=== PATIENT | female | born 1970 | race Caucasian/White ===

== ENCOUNTER 2016-08-26 13:49 | Emergency (ER) | payer OTHER ==
[~2016-08-26] VITALS: Ht 162.6 cm; Wt 52.2 kg
[2016-08-26 14:16] LABS: ABSOLUTE BASOPHIL COUNT 0.1 /CUMM (0.0-0.2); ABSOLUTE EOSINOPHIL COUNT 0.6 /CUMM (0.0-0.7); ABSOLUTE LYMPH COUNT 3.1 /CUMM (1.2-3.4); ABSOLUTE MONOCYTE COUNT 0.6 /CUMM (0.10-0.60); BASOPHIL % 0.8 % (0.0-2.0); EOSINOPHIL % 6.5 % (0-5); GRANULOCYTE % 53.3 % (42.2-75.2); HEMATOCRIT 41.4 % (37-47); MEAN CORPUSCULAR HGB 33.9 PG (27.0-31.0); MEAN CORPUSCULAR HGB CONC 34.5 G/DL (33.0-37.0); MEAN CORPUSCULAR VOLUME 98.3 FL (81.0-99.0); MEAN PLATELET VOLUME 6.9 FL (7.4-10.4); PLATELET COUNT 394 /CUMM (130-400); RBC DISTRIBUTION WIDTH 11.5 % (11.5-14.5); RED BLOOD CELL CT 4.21 /CUMM (4.20-5.40); WHITE BLOOD CELL COUNT 9.4 /CUMM (4.8-10.8)
--- NOTE | 2016-08-26 14:18 | ED GI/GU/ABDOMINAL COMPLAINT ---
History of Present Illness General Chief Complaint: Abdominal Pain/Flank Pain Stated Complaint: COUGH, N/V, ABD PAIN X1WEEK Source: patient Exam Limitations: no limitations Vital Signs & Intake/Output Vital Signs & Intake/Output Vital Signs Date Time Temp Pulse Resp B/P B/P Pulse O2 O2 Flow FiO2 Mean Ox Delivery Rate 08/26 1355 99.1 87 20 110/68 96 Room Air Allergies Coded Allergies: codeine (Intermediate, ITCHING 08/26/16) Reconcile Medications Dicyclomine Hydrochloride (Bentyl) 10 MG CAPSULE 1 CAP PO TID PRN SPASM Escitalopram Oxalate 20 MG TABLET 1 TAB PO DAILY MENTAL HEALTH (Reported) Hyoscyamine (Levsin) 0.125 MG TABLET 1 TAB PO Q4 GI Ondansetron (Zofran Odt) 4 MG TAB.RAPDIS 1 TAB PO Q6 PRN NAUSEA Triage Note: PT C/O LOWER ABDOMINAL PAIN X 1 WEEK. STATES LAST WEEK HAD N/V WITH IT AND SHE THOUGHT IT WAS A VIRUS BUT THE PAIN HASN'T GONE AWAY. STATES LAST WEEK HER STOOL WAS BLACK AND THIS WEEK DIARRHEA. PT ALSO C/O PRODUCTIVE COUGH Triage Nurses Notes Reviewed? yes ? N Is pt currently ? No Onset: Gradual Duration: week(s): (1) Timing: multiple episodes today Quality/Severity: moderate Location: generalized abdomen Associated Symptoms: abdominal pain, diarrhea, nausea/vomiting HPI: 46 year old female presents to the ER for chief complaint of nausea, vomiting, diarrhea and abdominal pain for the past week. SHe thought it was something viral but states that symptoms are not resolving. Denies any sick contacts or travel. She reported some black stool. Past History Travel History Traveled to [place] past 21 day No Medical History Any Pertinent Medical History? see below for history Psychiatric: depression Surgical History Surgical History: cholecystectomy, hysterectomy, COLONOSCOPY X 4, (LAST 7 YEARS AGO) Psychosocial History Who do you live with Family Services at Home NONE What is your primary language Bahamian Tobacco Use: Current Daily Use Daily Tobacco Use Amount/Type: => 5 Cigarettes daily ETOH Use: occasional use Illicit Drug Use: denies illicit drug use Family History Comment: AUNT - OF COLON [place] Hx Contributory? Yes Review of Systems Review of Systems Constitutional: Denies: chills, fever. EENTM: Reports: no symptoms. Respiratory: Denies: cough. Cardiovascular: Denies: chest pain. GI: Reports: abdominal pain, diarrhea, nausea, vomiting. Genitourinary: Denies: discharge, dysuria. Musculoskeletal: Reports: no symptoms. Skin: Reports: no symptoms. Neurological/Psychological: Reports: no symptoms. Hematologic/Endocrine: Denies: bruising, bleeding, polyuria, polydipsia. Immunologic/Allergic: Denies: splenectomy. All Other Systems: Reviewed and Negative Physical Exam Physical Exam General Appearance: well developed/nourished, alert, awake, mild distress Head: atraumatic, normal appearance, active bleeding Eyes: Bilateral: normal appearance, PERRL, EOMI. Ears, Nose, Throat, Mouth: hearing grossly normal, moist mucous membrane Respiratory: normal breath sounds, chest non-tender, no respiratory distress Cardiovascular: regular rate/rhythm Peripheral Pulses: 2+ radial (R), 2+ radial (L) Gastrointestinal: normal bowel sounds, soft, tenderness (mild diffuse) Back: normal inspection, normal range of motion Extremities: normal range of motion Neurologic/Psych: no motor/sensory deficits, awake, alert, oriented x 3 Skin: intact, normal color, warm/dry Core Measures ACS in differential dx? No Severe Sepsis Present: No Septic Shock Present: No Progress Differential Diagnosis: appendicitis, bowel obstruction, perforated viscous, SBO Plan of Care: Orders Procedure Date/time Status LACTIC ACID 08/26 1702 Active LACTIC ACID 08/26 1402 Complete URINALYSIS 08/26 1357 Complete LIPASE 08/26 1357 Complete COMPREHENSIVE METABOLIC PANEL 08/26 1357 Complete CBC WITHOUT DIFFERENTIAL 08/26 1357 Complete AMYLASE 08/26 1357 Complete Current Medications Sig/Coco Start time Last Medication Dose Stop Time Status Admin Dicyclomine HCl 20 MG 4 TIMES/DAY 08/26 1800 CAN (Bentyl) Ondansetron HCl 4 MG ONCE ONE 08/26 1645 CAN (Zofran) 08/26 1646 Ceftriaxone Sodium 1,000 MG ONCE ONE 08/26 1600 CAN (Rocephin) 08/26 1601 Ondansetron HCl 4 MG ONCE ONE 08/26 1430 CAN (Zofran) 08/26 1431 Laboratory Tests 08/26/16 1425: Urine Color YEL, Urine Clarity CLEAR, Urine pH 6.0, Ur Specific [place] <= 1.005 , Urine Protein NEG, Urine Ketones NEG, Urine Nitrite NEG, Urine Bilirubin NEG, Urine Urobilinogen 0.2, Ur Leukocyte Esterase NEG, Ur Microscopic EXAM NOT REQUIRED, Urine Hemoglobin NEG, Urine Glucose NEG 08/26/16 1405: Lactic Acid 0.6 L 08/26/16 1405: Anion Gap 10, Estimated GFR > 60, BUN/Creatinine Ratio 17.5, Glucose 90, Calcium 9.2, Total Bilirubin 0.7, AST 24, ALT 39, Alkaline Phosphatase 65, Total Protein 7.0, Albumin 4.4, Globulin 2.6, Albumin/Globulin Ratio 1.7, Amylase 73, Lipase 83, CBC w Diff NO MAN DIFF REQ, RBC 4.21, MCV 98.3, MCH 33.9 H, RDW 11.5, MPV 6.9 L, Gran % 53.3, Lymphocytes % 32.9, Monocytes % 6.5, Eosinophils % 6.5 H, Basophils % 0.8, Absolute Granulocytes 5.0, Absolute Lymphocytes 3.1, Absolute Monocytes 0.6, Absolute Eosinophils 0.6, Absolute Basophils 0.1, PUBS MCHC 34.5 patient beels better after iv medications. results of ct scan pending. (DAVID GIFFORD,POLO) Diagnostic Imaging: Viewed by Me: Radiology Read, CT Scan. Discussed w/RAD: Radiology Read, CT Scan. Radiology Impression: PATIENT: ANUP STRATTON PRESENT AGE: 46 PATIENT ACCOUNT NO: [id number] : 72 LOCATION: [facility] ORDERING PHYSICIAN: POLO HERNANDEZ MD SERVICE DATE: 08/26/16 EXAM TYPE: RAD - [id number] VIEWS EXAMINATION: XR ABDOMEN MULTIPLE VIEWS CLINICAL INDICATION: Abdominal distention, constipation. Rule out obstruction COMPARISON: CT 08/26/2008 TECHNIQUE: AP supine and erect views of the abdomen and pelvis FINDINGS: Lung bases are clear. No pneumatosis or pneumoperitoneum seen. There is gas within nondilated small bowel and colon. No air-fluid levels. Gas is seen in the colon is far distally as the sigmoid colon. No gas seen within the rectum. Right upper quadrant surgical clips. IMPRESSION: Nonobstructive abdominal bowel gas pattern. Gas is seen as far distally as the sigmoid colon. I do not see a significant stool in the right, left, or transverse colon. Rectal fecal impaction or obstruction could conceivably be present. Recommend correlation with physical exam. DICTATED BY: MINI MERLOS MD DATE/TIME DICTATED:08/26/161531 MEDICAID BUSINESS ANALYST:JOSH DATE/TIME TRANSCRIBED:1531 CONFIDENTIAL, DO NOT COPY WITHOUT APPROPRIATE AUTHORIZATION. < Electronically signed in Other Vendor System> SIGNED BY: MINI MERLOS MD 08/26/161537, PATIENT: ANUP STRATTON PRESENT AGE: 46 PATIENT ACCOUNT NO: [id number] : 72 LOCATION: [facility] ORDERING PHYSICIAN: POLO HERNANDEZ MD SERVICE DATE: 08/26/16 EXAM TYPE: CAT - CT ABD & PELVIS W IV CONTRAST EXAMINATION: CT ABDOMEN AND PELVIS WITH CONTRAST CLINICAL INFORMATION: Three days of lower abdominal pain, cramping and constipation. COMPARISON: CT abdomen and pelvis 08/26/2008. TECHNIQUE: Multidetector volumetric imaging was performed of the abdomen and pelvis before and after the IV administration of 95 mL of Optiray 320 intravenous contrast. Sagittal and coronal reformatted images were obtained on the technologist's workstation. DLP: 250 mGy-cm FINDINGS: LUNG BASES: The visualized lung bases are unremarkable. LIVER, GALLBLADDER, AND BILIARY TREE: The liver is normal in size, shape, and attenuation. No focal hepatic lesion or biliary ductal dilatation is present. The gallbladder is surgically absent. There is mild prominence of the common bile duct which is visualized measuring up to 7 mm in diameter. This is not unexpected following cholecystectomy. PANCREAS: Unremarkable. SPLEEN: Unremarkable. ADRENAL GLANDS: Unremarkable. KIDNEYS AND URETERS: The kidneys are normal in size, shape, and attenuation. No hydronephrosis, hydroureter, or calculi seen. No perinephric stranding. BLADDER: Unremarkable. GASTROINTESTINAL TRACT: Evaluation of the gastrointestinal system is notable for a moderate amount of retained stool within the colon, notably within the cecum and ascending colon as well as within the transverse colon. This retained stool appears to be liquid in nature, which can be seen in the setting of diarrhea although the patient reports constipation. There is no circumferential bowel wall thickening. Abdominal and pelvic bowel loops are normal in caliber, without findings indicative of small bowel obstruction or ileus. A normal-appearing appendix is present within the right iliac fossa. No organizing intra-abdominal or pelvic fluid collections are identified. ABDOMINAL WALL: No significant hernia is appreciated. LYMPH NODES: No significant abdominal or pelvic adenopathy. VASCULAR: Patent abdominal vasculature. Normal course and caliber of the abdominal aorta and its branching vessels, without aneurysmal dilatation. PELVIC VISCERA: Unremarkable. OSSEOUS STRUCTURES: No acute osseous abnormality. Normal alignment of the thoracolumbar spine. IMPRESSION: A moderate amount of retained stool within the colon, notably within the cecum and ascending colon as well as within the transverse colon. This retained stool appears to be liquid in nature, which can be seen in the setting of diarrhea, although the patient reports constipation. Correlate clinically for an infectious or inflammatory colitis. DICTATED BY: SONIA RUIZ MD DATE/TIME DICTATED:08/26/161615 MEDICAID BUSINESS ANALYST:JOSH DATE/TIME TRANSCRIBED:08/26/161615 CONFIDENTIAL, DO NOT COPY WITHOUT APPROPRIATE AUTHORIZATION. <Electronically signed in Other Vendor System> SIGNED BY: SONIA RUIZ MD 08/26/161625 CXR Impression: PATIENT: ANUP STRATTON PRESENT AGE: 46 PATIENT ACCOUNT NO: [id number] : 72 LOCATION: ER ORDERING PHYSICIAN: POLO HERNANDEZ MD SERVICE DATE: 08/26/165248 EXAM TYPE: RAD - XRY-CHEST XRAY , PA AND LATERAL EXAMINATION: XR CHEST CLINICAL INFORMATION: Productive cough. Bronchiolitis. COMPARISON: Chest x-ray 04/06/2013 TECHNIQUE: 2 views of the chest were obtained. FINDINGS: No significant abnormality is noted involving the heart, lungs, mediastinum, bony thorax or soft tissues. Surgical clips are upper quadrant of abdomen. IMPRESSION: No acute abnormality of the chest. DICTATED BY: VITO GARCIA MD DATE/TIME DICTATED:08/26/161449 MEDICAID BUSINESS ANALYST:JOSH DATE/TIME TRANSCRIBED:08/26/161449 CONFIDENTIAL, DO NOT COPY WITHOUT APPROPRIATE AUTHORIZATION. <Electronically signed in Other Vendor System> SIGNED BY: VITO GARCIA MD 08/26/161453 Initial ED EKG: none Comments: PATIENT: ANUP STRATTON PRESENT AGE: 46 PATIENT ACCOUNT NO: [id number] : 72 LOCATION: ER ORDERING PHYSICIAN: POLO HERNANDEZ MD SERVICE DATE: 08/26/161635 EXAM TYPE: CAT - CT ABD & PELVIS W IV CONTRAST EXAMINATION: CT ABDOMEN AND PELVIS WITH CONTRAST CLINICAL INFORMATION: Three days of lower abdominal pain, cramping and constipation. COMPARISON: CT abdomen and pelvis 08/26/2008. TECHNIQUE: Multidetector volumetric imaging was performed of the abdomen and pelvis before and after the IV administration of 95 mL of Optiray 320 intravenous contrast. Sagittal and coronal reformatted images were obtained on the technologist's workstation. DLP: 250 mGy-cm FINDINGS: LUNG BASES: The visualized lung bases are unremarkable. LIVER, GALLBLADDER, AND BILIARY TREE: The liver is normal in size, shape, and attenuation. No focal hepatic lesion or biliary ductal dilatation is present. The gallbladder is surgically absent. There is mild prominence of the common bile duct which is visualized measuring up to 7 mm in diameter. This is not unexpected following cholecystectomy. PANCREAS: Unremarkable. SPLEEN: Unremarkable. ADRENAL GLANDS: Unremarkable. KIDNEYS AND URETERS: The kidneys are normal in size, shape, and attenuation. No hydronephrosis, hydroureter, or calculi seen. No perinephric stranding. BLADDER: Unremarkable. GASTROINTESTINAL TRACT: Evaluation of the gastrointestinal system is notable for a moderate amount of retained stool within the colon, notably within the cecum and ascending colon as well as within the transverse colon. This retained stool appears to be liquid in nature, which can be seen in the setting of diarrhea although the patient reports constipation. There is no circumferential bowel wall thickening. Abdominal and pelvic bowel loops are normal in caliber, without findings indicative of small bowel obstruction or ileus. A normal-appearing appendix is present within the right iliac fossa. No organizing intra-abdominal or pelvic fluid collections are identified. ABDOMINAL WALL: No significant hernia is appreciated. LYMPH NODES: No significant abdominal or pelvic adenopathy. VASCULAR: Patent abdominal vasculature. Normal course and caliber of the abdominal aorta and its branching vessels, without aneurysmal dilatation. PELVIC VISCERA: Unremarkable. OSSEOUS STRUCTURES: No acute osseous abnormality. Normal alignment of the thoracolumbar spine. IMPRESSION: A moderate amount of retained stool within the colon, notably within the cecum and ascending colon as well as within the transverse colon. This retained stool appears to be liquid in nature, which can be seen in the setting of diarrhea, although the patient reports constipation. Correlate clinically for an infectious or inflammatory colitis. DICTATED BY: SONIA RUIZ MD DATE/TIME DICTATED:08/26/161615 MEDICAID BUSINESS ANALYST:JOSH DATE/TIME TRANSCRIBED:08/26/161615 CONFIDENTIAL, DO NOT COPY WITHOUT APPROPRIATE AUTHORIZATION. <Electronically signed in Other Vendor System> SIGNED BY: SONIA RUIZ MD 08/26/161625 Departure Departure Time of Disposition: 1640 Disposition: HOME OR SELF CARE Condition: Stable Clinical Impression Primary Impression: Enteritis Referrals: PAYAL GIFFORD,STONE Kaye (PCP/Family) Additional Instructions: Take MiraLAX [id number] and Colace. Drink plenty of fluids and start probiotics. Take the hycosamine, Zofran and Bentyl as directed. Use the golytely if needed. Follow up with your doctor in the office on Monday. Return to the ER as needed. Departure Forms: Customer Survey General Discharge Information Prescriptions: Current Visit Scripts Ondansetron (Zofran Odt) 1 TAB PO Q6 PRN NAUSEA #20 TAB Dicyclomine Hydrochloride (Bentyl) 1 CAP PO TID PRN SPASM #30 CAP Hyoscyamine (Levsin) 1 TAB PO Q4 #30 TAB
[2016-08-26] MEDS ORDERED: ESCITALOPRAM OX20 MG PO (14:46)
--- NOTE | 2016-08-26 14:54 | RADIOLOGY REPORT ---
EXAMINATION: XR CHEST CLINICAL INFORMATION: Productive cough. Bronchiolitis. COMPARISON: Chest x-ray 04/06/2013 TECHNIQUE: 2 views of the chest were obtained. FINDINGS: No significant abnormality is noted involving the heart, lungs, mediastinum, bony thorax or soft tissues. Surgical clips are upper quadrant of abdomen. IMPRESSION: No acute abnormality of the chest.
--- NOTE | 2016-08-26 15:38 | RADIOLOGY REPORT ---
EXAMINATION: XR ABDOMEN MULTIPLE VIEWS CLINICAL INDICATION: Abdominal distention, constipation. Rule out obstruction COMPARISON: CT 08/26/2008 TECHNIQUE: AP supine and erect views of the abdomen and pelvis FINDINGS: Lung bases are clear. No pneumatosis or pneumoperitoneum seen. There is gas within nondilated small bowel and colon. No air-fluid levels. Gas is seen in the colon is far distally as the sigmoid colon. No gas seen within the rectum. Right upper quadrant surgical clips. IMPRESSION: Nonobstructive abdominal bowel gas pattern. Gas is seen as far distally as the sigmoid colon. I do not see a significant stool in the right, left, or transverse colon. Rectal fecal impaction or obstruction could conceivably be present. Recommend correlation with physical exam.
--- NOTE | 2016-08-26 16:26 | CT SCAN REPORT ---
EXAMINATION: CT ABDOMEN AND PELVIS WITH CONTRAST CLINICAL INFORMATION: Three days of lower abdominal pain, cramping and constipation. COMPARISON: CT abdomen and pelvis 08/26/2008. TECHNIQUE: Multidetector volumetric imaging was performed of the abdomen and pelvis before and after the IV administration of 95 mL of Optiray 320 intravenous contrast. Sagittal and coronal reformatted images were obtained on the technologist's workstation. DLP: 250 mGy-cm FINDINGS: LUNG BASES: The visualized lung bases are unremarkable. LIVER, GALLBLADDER, AND BILIARY TREE: The liver is normal in size, shape, and attenuation. No focal hepatic lesion or biliary ductal dilatation is present. The gallbladder is surgically absent. There is mild prominence of the common bile duct which is visualized measuring up to 7 mm in diameter. This is not unexpected following cholecystectomy. PANCREAS: Unremarkable. SPLEEN: Unremarkable. ADRENAL GLANDS: Unremarkable. KIDNEYS AND URETERS: The kidneys are normal in size, shape, and attenuation. No hydronephrosis, hydroureter, or calculi seen. No perinephric stranding. BLADDER: Unremarkable. GASTROINTESTINAL TRACT: Evaluation of the gastrointestinal system is notable for a moderate amount of retained stool within the colon, notably within the cecum and ascending colon as well as within the transverse colon. This retained stool appears to be liquid in nature, which can be seen in the setting of diarrhea although the patient reports constipation. There is no circumferential bowel wall thickening. Abdominal and pelvic bowel loops are normal in caliber, without findings indicative of small bowel obstruction or ileus. A normal-appearing appendix is present within the right iliac fossa. No organizing intra-abdominal or pelvic fluid collections are identified. ABDOMINAL WALL: No significant hernia is appreciated. LYMPH NODES: No significant abdominal or pelvic adenopathy. VASCULAR: Patent abdominal vasculature. Normal course and caliber of the abdominal aorta and its branching vessels, without aneurysmal dilatation. PELVIC VISCERA: Unremarkable. OSSEOUS STRUCTURES: No acute osseous abnormality. Normal alignment of the thoracolumbar spine. IMPRESSION: A moderate amount of retained stool within the colon, notably within the cecum and ascending colon as well as within the transverse colon. This retained stool appears to be liquid in nature, which can be seen in the setting of diarrhea, although the patient reports constipation. Correlate clinically for an infectious or inflammatory colitis.
[2016-08-26] MEDS ORDERED: ZOFRAN ODT4 M1 PO (16:51)
[2016-08-26] MEDS ORDERED: BENTYL10 M1 PO (16:51)
[2016-08-26] MEDS ORDERED: LEVSIN0.125 M1 PO (16:51)
[2016-08-26 17:11] VITALS: BP 108/66
== END 2016-08-26 17:11 ==
LOC: ERH 13:49
PROVIDERS: Emergency Medicine
DX: K52.9 Noninfective gastroenteritis and colitis, unspecified (principal)
CPT/HCPCS: 74020; 74177; 81003; 81025; 96374; 96375; 96376; J1885; J2405

== ENCOUNTER 2017-03-29 10:16 | Emergency (ER) | payer OTHER ==
[~2017-03-29] VITALS: Ht 162.6 cm; Wt 51.3 kg
[~2017-03-29 10:16] MED LIST: BENTYL10 M1 PO; ESCITALOPRAM OX20 MG PO; LEVSIN0.125 M1 PO; ZOFRAN ODT4 M1 PO
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
[2017-03-29 12:28] VITALS: BP 109/64
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
[2017-03-29] MEDS ORDERED: IBUPROFEN600 M1 PO (12:55)
[2017-03-29] MEDS ORDERED: CYCLOBENZAPRINE10 M1 PO (12:55)
== END 2017-03-29 13:01 ==
LOC: ERH 10:16
DX: S16.1XXA Strain of muscle, fascia and tendon at neck level, initial encounter (principal); S09.90XA Unspecified injury of head, initial encounter; V49.40XA Driver injured in collision with unspecified motor vehicles in traffic accident, initial encounter; Y92.411 Interstate highway as the place of occurrence of the external cause

== ENCOUNTER 2017-11-09 09:38 | Emergency (ER) | payer OTHER ==
[~2017-11-09] VITALS: Ht 162.6 cm; Wt 53.1 kg
[~2017-11-09 09:38] MED LIST changes: +CYCLOBENZAPRINE10 M1 PO; +IBUPROFEN600 M1 PO
[2017-11-09 10:45] LABS: ABSOLUTE BASOPHIL COUNT 0.1 /CUMM (0.0-0.2); ABSOLUTE EOSINOPHIL COUNT 0.4 /CUMM (0.0-0.7); ABSOLUTE GRANULOCYTE CT 8.1 /CUMM (1.4-6.5); ABSOLUTE LYMPH COUNT 3.2 /CUMM (1.2-3.4); ABSOLUTE MONOCYTE COUNT 0.8 /CUMM (0.10-0.60); BASOPHIL % 0.7 % (0.0-2.0); EOSINOPHIL % 3.2 % (0-5); GRANULOCYTE % 64.3 % (42.2-75.2); HEMATOCRIT 39.2 % (37-47); MEAN CORPUSCULAR HGB 34.7 PG (27.0-31.0); MEAN CORPUSCULAR HGB CONC 34.5 G/DL (33.0-37.0); MEAN CORPUSCULAR VOLUME 100.8 FL (81.0-99.0); MEAN PLATELET VOLUME 6.9 FL (7.4-10.4); PLATELET COUNT 384 /CUMM (130-400); RBC DISTRIBUTION WIDTH 11.9 % (11.5-14.5); RED BLOOD CELL CT 3.89 /CUMM (4.20-5.40); WHITE BLOOD CELL COUNT 12.5 /CUMM (4.8-10.8)
--- NOTE | 2017-11-09 11:51 | ED GENERAL ADULT ---
History of Present Illness General Chief Complaint: General Adult Stated Complaint: FLUID RETENTION Source: patient Exam Limitations: no limitations Vital Signs & Intake/Output Vital Signs & Intake/Output Vital Signs Date Time Temp Pulse Resp B/P B/P Pulse O2 O2 Flow FiO2 Mean Ox Delivery Rate 11/09 1234 98.3 61 16 106/59 98 Room Air 11/09 1145 Room Air 11/09 0940 98.9 92 15 115/72 96 Room Air Room Air Allergies Coded Allergies: codeine (Intermediate, ITCHING 11/09/17) Reconcile Medications Escitalopram Oxalate 20 MG TABLET 1 TAB PO DAILY MENTAL HEALTH (Reported) Triage Note: PT TO ED FOR C/C OF ?FLUID RETENTION. PT REPORTS SHE HAS GAINED 10 POUNDS OVER THE LAST 3 DAYS. REPORTS SWELLING IS EVERYWHERE. NO SIGNIFICANT SWELLING NOTED IN TRIAGE. DENIES SOB. Triage Nurses Notes Reviewed? yes Onset: Gradual Duration: day(s): Timing: recent history Severity: moderate : No Patient currently breastfeeds: No HPI: 47-year-old female with history of depression presents to emergency department complaining of swelling. Patient states that she has had swelling to abdomen, extremities, face beginning 4 days ago. She reports 10 pound weight gain associated with her swelling. Patient states that she goes up 4 flights of stairs every day. She did not noticed dyspnea however felt she may have been more winded recently. Patient states she has had mild swelling in the past however never this severe. She smokes half pack cigarettes per day. She drinks 1-2 glasses of wine every night. She denies recent travel, chest pain, fevers. Past History Travel History Traveled to [place] past 21 day No Medical History Any Pertinent Medical History? see below for history Psychiatric: depression Surgical History Surgical History: cholecystectomy, hysterectomy, COLONOSCOPY X 4, (LAST 7 YEARS AGO) CERVICAL FUSION Psychosocial History Who do you live with Family Services at Home NONE What is your primary language Rwandan Tobacco Use: Current Daily Use Daily Tobacco Use Amount/Type: => 5 Cigarettes daily ETOH Use: DAILY USE Illicit Drug Use: denies illicit drug use Family History Hx Contributory? No Review of Systems Review of Systems Constitutional: Reports: see HPI. EENTM: Reports: no symptoms. Respiratory: Reports: see HPI. Cardiovascular: Reports: no symptoms. GI: Reports: no symptoms. Genitourinary: Reports: no symptoms. Musculoskeletal: Reports: no symptoms. Skin: Reports: no symptoms. Neurological/Psychological: Reports: no symptoms. Hematologic/Endocrine: Reports: no symptoms. Immunologic/Allergic: Reports: no symptoms. All Other Systems: Reviewed and Negative Physical Exam Physical Exam General Appearance: well developed/nourished, no apparent distress, alert, awake Head: atraumatic, normal appearance Eyes: Bilateral: normal appearance. Ears, Nose, Throat: hearing grossly normal Neck: normal inspection, supple, full range of motion Respiratory: normal breath sounds, no respiratory distress, lungs clear Cardiovascular: regular rate/rhythm, norml femoral pulses equa Peripheral Pulses: 2+ radial (R), 2+ radial (L) Gastrointestinal: normal bowel sounds, soft, non-tender, no organomegaly Back: normal inspection, normal range of motion Extremities: normal inspection, normal range of motion, no edema Neurologic/Psych: awake, alert, oriented x 3 Skin: intact, normal color, warm/dry Comments: No apparent swelling to face, abdomen, extremities Core Measures ACS in differential dx? No CVA/TIA Diagnosis: No Sepsis Present: No Sepsis Focused Exam Completed? No Progress Differential Diagnoses I considered the following diagnoses in my evaluation of the patient: [Nephrotic syndrome, CHF, volume overload, electrolyte abnormality, venous stasis, ascites] Plan of Care: Orders Procedure Date/time Status Add-on Test (ER Only) 11/09 1149 Active THYROID STIMULATING HORMONE 11/09 1035 Complete FREE T4 11/09 1035 Complete URINE 11/09 1020 Complete URINALYSIS 11/09 1020 Complete LYME TITRE 11/09 1020 Active COMPREHENSIVE METABOLIC PANEL 11/09 1020 Complete CBC WITHOUT DIFFERENTIAL 11/09 1020 Complete B-TYPE NATRIURETIC PEP (BNP) 11/09 1020 Complete Laboratory Tests 11/09/17 1041: Urine Color YEL, Urine Clarity CLEAR, Urine pH 5.5, Ur Specific [place] 1.010, Urine Protein NEG, Urine Ketones NEG, Urine Nitrite NEG, Urine Bilirubin NEG, Urine Urobilinogen 0.2, Ur Leukocyte Esterase NEG, Ur Microscopic EXAM NOT REQUIRED, Urine Hemoglobin NEG, Urine Glucose NEG, Urine Test NEGATIVE 11/09/17 1035: Anion Gap 6, Estimated GFR > 60, BUN/Creatinine Ratio 17.5, Glucose 94, Calcium 8.8, Total Bilirubin 0.5, AST 30, ALT 35, Alkaline Phosphatase 49, Pro-B- Natriuretic Pept 184 H, Total Protein 6.0 L, Albumin 3.4 L, Globulin 2.6, Albumin/Globulin Ratio 1.3, TSH 1.700, Free T4 0.86, CBC w Diff NO MAN DIFF REQ, RBC 3.89 L, MCV 100.8 H, MCH 34.7 H, MCHC 34.5, RDW 11.9, MPV 6.9 L, Gran % 64.3, Lymphocytes % 25.5, Monocytes % 6.3, Eosinophils % 3.2, Basophils % 0.7, Absolute Granulocytes 8.1 H, Absolute Lymphocytes 3.2, Absolute Monocytes 0.8 H, Absolute Eosinophils 0.4, Absolute Basophils 0.1 11/09/17 1020: Lyme Disease Antibody Pending Patient's labs are stable. No proteinuria. No electrolyte abnormality. Thyroid function tests stable. BNP is within normal limits. Patient is requesting Lyme titer to be added on, she states she is outside frequently. She has had no known tick bite or rash. There is no gross edema or swelling appreciated on physical exam. No evidence of cardiopulmonary congestion on chest x-ray. Patient encouraged to continue to check her weight daily and follow-up with her primary care doctor. She was given a printout copy of her labs and was informed her primary may wish to recheck these in about a week. She will return if she has any worsening symptoms or concerns. She agrees with plan of care. Diagnostic Imaging: Viewed by Me: Radiology Read. Discussed w/RAD: Radiology Read. CXR Impression: PATIENT: ANUP STRATTON PRESENT AGE: 47 PATIENT ACCOUNT NO: [id number] : 72 LOCATION: [facility] ORDERING PHYSICIAN: Vicky TOBIAS SERVICE DATE: 11/09/17-1149 EXAM TYPE: RAD - XRY-CHEST XRAY, TWO VIEWS EXAMINATION: XR CHEST CLINICAL INFORMATION: Assess for cardiopulmonary congestion. COMPARISON: Chest x-ray 08/26/2016. TECHNIQUE: PA and lateral views of the chest were obtained. FINDINGS: The lung lux are well expanded and appear clear bilaterally. The cardiac silhouette is normal. There are no pleural effusions or pneumothorax. The central pulmonary vasculature is normal. The hilar regions appear normal. There are no acute osseous findings. IMPRESSION: 1. There are no acute cardiopulmonary findings. DICTATED BY: Lucas Pelayo MD DATE/TIME DICTATED:11/09/171213 CONTRACT NEGOTIATOR:JOSH DATE/TIME TRANSCRIBED:11/09/171213 CONFIDENTIAL, DO NOT COPY WITHOUT APPROPRIATE AUTHORIZATION. <Electronically signed in Other Vendor System> SIGNED BY: Lucas Pelayo MD 11/09/171217 Initial ED EKG: none Departure Departure Disposition: HOME OR SELF CARE Condition: Stable Clinical Impression Primary Impression: Weight gain Secondary Impressions: Swelling Referrals: Hayde Leach MD (PCP/Family) Additional Instructions: Drink about 2 liters of liquids per day. Continue to check your weight every day. Follow up with your primary care doctor next week, they may wish to recheck your blood work. We will call you if the results of your lyme titer are abnormal. Return with worsening symptoms or concerns. Please note that there might be incidental findings in your evaluation that are unrelated to the current emergency department visit. Please notify your primary care doctor about this emergency department visit in order to obtain and review all of the testing performed so that these incidental findings can be monitored as needed. If you had an x-ray performed, please understand that some fractures may not be seen on the initial set of x-rays. If your symptoms persist you might need a repeat set of x-rays to check for such a fracture. If you had a laceration evaluated, please understand that foreign bodies such as glass or wood may not be visible to the naked eye or on plain x-rays. If the wound becomes red, swollen, increasingly more painful or if there is any drainage from the wound, please have it reevaluated by a physician for the possibility of a retained foreign body. If you're unable to follow up as outlined in the discharge instructions please return to the emergency department. Thank you for choosing the [facility] Emergency Department for your care. It was a pleasure to serve you today. Departure Forms: Customer Survey General Discharge Information Critical Care Note Critical Care Note Critical Care Time: non-applicable
--- NOTE | 2017-11-09 12:18 | RADIOLOGY REPORT ---
EXAMINATION: XR CHEST CLINICAL INFORMATION: Assess for cardiopulmonary congestion. COMPARISON: Chest x-ray 08/26/2016. TECHNIQUE: PA and lateral views of the chest were obtained. FINDINGS: The lung lux are well expanded and appear clear bilaterally. The cardiac silhouette is normal. There are no pleural effusions or pneumothorax. The central pulmonary vasculature is normal. The hilar regions appear normal. There are no acute osseous findings. IMPRESSION: 1. There are no acute cardiopulmonary findings.
[2017-11-09 12:34] VITALS: BP 106/59
== END 2017-11-09 12:41 ==
LOC: ERH 09:38
PROVIDERS: Physician Assistant
DX: R63.5 Abnormal weight gain (principal); R60.9 Edema, unspecified
CPT/HCPCS: 86618; 71046; 81003; 81025